=== PATIENT | male | born 1980 | race Caucasian/White ===

== ENCOUNTER → 2016-06-24 | Outpatient (CLI) | payer OTHER | LOC: LAB 12:20 | DX: R10.11 Right upper quadrant pain (principal) ==

== ENCOUNTER → 2016-06-25 | Outpatient (CLI) | payer OTHER | LOC: RAD 07:45 | DX: R10.11 Right upper quadrant pain (principal) ==

== ENCOUNTER → 2016-07-01 | Outpatient (CLI) | payer OTHER | LOC: RAD 12:59 | DX: R10.11 Right upper quadrant pain (principal) ==

== ENCOUNTER → 2017-09-11 | Outpatient (CLI) | payer OTHER | LOC: LAB 12:14 | DX: S60.419A Abrasion of unspecified finger, initial encounter (principal) ==

== ENCOUNTER 2019-01-08 17:13 | Emergency (ER) | payer OTHER ==
[2019-01-08] MEDS ORDERED: CYCLOBENZAPRINE10 M1 PO (17:26)
[2019-01-08] MEDS ORDERED: ZOFRAN ODT4 MG PO (19:38)
[2019-01-08 19:56] VITALS: BP 142/86
== END 2019-01-08 19:45 | disposition home or self-care (01) ==
LOC: ED 17:13
DX: S00.33XA Contusion of nose, initial encounter (principal); S00.83XA Contusion of other part of head, initial encounter; S06.0X9A Concussion with loss of consciousness of unspecified duration, initial encounter; G47.30 Sleep apnea, unspecified; Y00.XXXA Assault by blunt object, initial encounter; Y92.009 Unspecified place in unspecified non-institutional (private) residence as the place of occurrence of the external cause
CPT/HCPCS: J1885

== ENCOUNTER → 2019-12-06 | Outpatient (CLI) | payer OTHER ==
[~2019-12-06] MED LIST: CYCLOBENZAPRINE10 M1 PO; ZOFRAN ODT4 MG PO
[2019-12-06 22:00] LABS: FOLATE (FOLIC ACID) 12.1 ng/mL (7.0-31.4)
== END ==
LOC: LAB 09:43
PROVIDERS: Psychiatry & Neurology Neurology
DX: E55.9 Vitamin D deficiency, unspecified (principal); E53.9 Vitamin B deficiency, unspecified; E61.1 Iron deficiency; E53.8 Deficiency of other specified B group vitamins; E61.2 Magnesium deficiency; Z79.899 Other long term (current) drug therapy

== ENCOUNTER → 2024-01-18 | Outpatient (CLI) | payer OTHER ==
[~2024-01-18] MED LIST changes: +Gadoterate 20 ML VIAL IV ONE; +Iohexol 300 - 100 ML VIAL IV ONE; +LIDOCAINE IJ ONE; +MULTI IJ ONE
== END ==
LOC: RAD 07:00
DX: M25.552 Pain in left hip (principal)
CPT/HCPCS: A9575; Q9967

== ENCOUNTER → 2024-02-01 | Outpatient (CLI) | payer OTHER ==
[~2024-02-01] MED LIST changes: -Gadoterate 20 ML VIAL IV ONE; -LIDOCAINE IJ ONE; +LIDOCAINE IJ SCH; -MULTI IJ ONE; +MULTI IJ SCH; +Triamcinolone 40 MG/ML 1 ML VIAL IJ SCH
== END ==
LOC: RAD 08:00
DX: M25.552 Pain in left hip (principal)
CPT/HCPCS: J0665; J3301; Q9967